=== PATIENT | female | born 1965 | race Caucasian/White ===

== ENCOUNTER 2020-01-30 21:16 | Emergency (ER) | payer MEDICARE, OTHER ==
[2020-01-30] MEDS ORDERED: ASPIRIN 81 MG PO STA (22:09)
[2020-01-30 22:42] LABS: Basophils # (A) 0.1 k/uL (0-0.2); Basophils % (A) 1 %; Eosinophils # (A) 0.4 k/uL (0-0.7); Eosinophils % (A) 4 %; HCT 40.3 % (34.0-46.0); HGB 13.2 gm/dL (11.4-16.0); Lymphocytes # (A) 3.3 k/uL (1.0-4.8); Lymphocytes % (A) 36 %; MCH 28.2 pg (25.0-35.0); MCHC 32.8 g/dL (31.0-37.0); MCV 86.1 fL (80.0-100.0); Mean Platelet Volume 6.8; Monocytes # (A) 0.5 k/uL (0-1.0); Monocytes % (A) 6 %; Neutrophils # (A) 4.7 k/uL (1.3-7.7); Neutrophils % (A) 51 %; Platelet Count 360 k/uL (150-450); RBC 4.68 m/uL (3.80-5.40); RDW 13.1 % (11.5-15.5); WBC 9.1 k/uL (3.8-10.6)
[2020-01-30 22:43] VITALS: RESP 18
--- NOTE | 2020-01-30 22:47 | XR ---
EXAMINATION TYPE: XR chest 1V portable DATE OF EXAM: 01/30/2020 COMPARISON: NONE HISTORY: Cough and short of breath TECHNIQUE: Single view FINDINGS: There is no heart failure nor confluent pneumonic infiltrate. There is a questionable minim al interstitial infiltrate in the periphery of the right midlung. There are chest leads. Costophrenic angles are clear. Bony thorax is intact. IMPRESSION: Possible mild right-sided interstitial peripheral infiltrate.
--- NOTE | 2020-01-30 23:03 | ED ---
General Adult HPI - General Source: patient, RN notes reviewed, old records reviewed Mode of arrival: wheelchair <Marquis Durham - Last Filed: 01/30/20 23:10> <Frances Dooley - Last Filed: 01/31/20 00:35> - General Chief complaint: Shortness of Breath Stated complaint: SOB Time Seen by Provider: 01/30/20 21:30 - History of Present Illness Initial comments: 55-year-old female patient ED. Patient was covid positive 01/05. Patient was that she is still feeling quite ill. Reports that she is extremely weak fatigue short of breath has been having chest pain the first offer last 3 days. Reports that is dull and achy. Patient does report that she has prior cardiac history however denies any stents or angioplasty. Reports angina and possible valvular disorder. Denies any other complaints. Systemic: Pt denies fatigue, fever/chills, rash. Pt denies weakness, night sweats, weight loss. Neuro: Pt denies headache, visual disturbances, syncope or pre-syncope. HEENT: Pt denies ocular discharge or irritation, otalgia, rhinorrhea, pharyngitis or notable lymphadenopathy. Cardiopulmonary: Pt denies heart palpitations, dyspnea on exertion. Abdominal/GI: Pt denies abdominal pain, n/v/d. : Pt denies dysuria, burning w/ urination, frequency/urgency. Denies new onset urinary or bowel incontinence. MSK: Pt denies myalgia, loss of strength or function in extremities. Neuro: Pt denies new onset weakness, paresthesias. (Marquis Durham) - Related Data Allergies Allergy/AdvReac Type Severity Reaction Status Date / Time rofecoxib [From Vioxx] Allergy Itching Verified 01/30/20 21:28 Review of Systems ROS Other: All systems not noted in ROS Statement are negative. <Marquis Durham - Last Filed: 01/30/20 23:10> ROS Other: All systems not noted in ROS Statement are negative. <Frances Dooley - Last Filed: 01/31/20 00:35> ROS Statement: Those systems with pertinent positive or pertinent negative responses have been documented in the HPI. General Exam <Marquis Durham - Last Filed: 01/30/20 23:10> - General Exam Comments Initial Comments: Constitutional: NAD, AOX3, Pt has pleasant affect. HEENT: NC/AT, trachea midline, neck supple, no lymphadenopathy. Posterior pharynx non erythematous, without exudates. External ears appear normal, without discharge. Mucous membranes moist. Eyes PERRLA, EOM intact. There is no scleral icterus. No pallor noted. Cardiopulmonary: RRR, no murmurs, rubs or gallops, no JVD noted. Mild wheezing noted anterior lung yoon. No peripheral edema. Abdominal exam: Abdomen soft and non-distended. Abdomen non-tender to palpation in all 4 quadrants. Bowel sounds active in LLQ. No hepatosplenomegaly. No ecchymosis Neuro: CN II-XII grossly intact. No nuchal rigidity. No raccon eyes, no robb sign, no hemotympanum. No cervical spinal tenderness. MSK: No posterior calf tenderness bilaterally, homans sign negative bilaterally. Posterior tibialis and radial pulse +2 bilaterally. Sensation intact in upper and lower extremities. Full active ROM in upper and lower extremities, 5/5 stregnth. (Marquis Durham) Course Vital Signs 01/30/20 01/30/20 21:25 22:30 Temperature 97.7 F Pulse Rate 86 79 Respiratory 20 18 Rate Blood Pressure 134/83 O2 Sat by Pulse 95 98 Oximetry Medical Decision Making - Lab Data Result diagrams: 01/30/20 22:16 - EKG Data -: EKG Interpreted by Me (and Dr. Dooley ) <Marquis Durham - Last Filed: 01/30/20 23:10> - Lab Data Result diagrams: 01/30/20 22:16 01/30/20 22:16 <Frances Dooley - Last Filed: 01/31/20 00:35> - Medical Decision Making 54 year old female patient covid positive to ED with chest pain, sob. EKG n onischemic, CXR displayed possible pneumonia. Patient will be signed out to Dr. Dooley for final disposition. (Marquis Durham) Patient care signed out to me by Drew Durham, patient presenting with pleuritic like chest pain and persistent shortness of breath after recovering from COVID. Labs are relatively unremarkable computed tomography scan shows inflammatory changes. 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 Recommended to follow up outpatient with a retort setter. Patient was given the names of multiple local retort setter for follow-up. All questions pertaining care were answered return parameters were discussed patient was discharged home in stable condition. (Frances Dooley) - Lab Data Lab Results 01/30/20 01/30/20 01/30/20 Range/Units 22:16 22:16 22:16 WBC 9.1 (3.8-10.6) k/uL RBC 4.68 (3.80-5.40) m/uL Hgb 13.2 (11.4-16.0) gm/dL Hct 40.3 (34.0-46.0) % MCV 86.1 (80.0-100.0) fL MCH 28.2 (25.0-35.0) pg MCHC 32.8 (31.0-37.0) g/dL RDW 13.1 (11.5-15.5) % Plt Count 360 (150-450) k/uL MPV 6.8 Neutrophils % 51 % Lymphocytes % 36 % Monocytes % 6 % Eosinophils % 4 % Basophils % 1 % Neutrophils # 4.7 (1.3-7.7) k/uL Lymphocytes # 3.3 (1.0-4.8) k/uL Monocytes # 0.5 (0-1.0) k/uL Eosinophils # 0.4 (0-0.7) k/uL Basophils # 0.1 (0-0.2) k/uL PT 9.4 (9.0-12.0) sec INR 0.9 (<1.2) APTT 22.0 (22.0-30.0) sec D-Dimer 0.30 (<0.60) mg/L FEU Sodium 135 L (137-145) mmol/L Potassium 4.1 (3.5-5.1) mmol/L Chloride 104 (98-107) mmol/L Carbon Dioxide 26 (22-30) mmol/L Anion Gap 5 mmol/L BUN 17 (7-17) mg/dL Creatinine 0.59 (0.52-1.04) mg/dL Est GFR (CKD-EPI)AfAm >90 (>60 ml/min/1.73 sqM) Est GFR (CKD-EPI)NonAf >90 (>60 ml/min/1.73 sqM) Glucose 136 H (74-99) mg/dL Plasma Lactic Acid Jv (0.7-2.0) mmol/L Calcium 9.7 (8.4-10.2) mg/dL Magnesium 2.0 (1.6-2.3) mg/dL Total Bilirubin 0.3 (0.2-1.3) mg/dL AST 23 (14-36) U/L ALT 19 (4-34) U/L Alkaline Phosphatase 95 (38-126) U/L Lactate Dehydrogenase 427 (313-618) U/L Troponin I (0.000-0.034) ng/mL C-Reactive Protein <5.0 (<10.0) mg/L Total Protein 6.8 (6.3-8.2) g/dL Albumin 3.9 (3.5-5.0) g/dL 01/30/20 01/30/20 Range/Units 22:16 22:16 WBC (3.8-10.6) k/uL RBC (3.80-5.40) m/uL Hgb (11.4-16.0) gm/dL Hct (34.0-46.0) % MCV (80.0-100.0) fL MCH (25.0-35.0) pg MCHC (31.0-37.0) g/dL RDW (11.5-15.5) % Plt Count (150-450) k/uL MPV Neutrophils % % Lymphocytes % % Monocytes % % Eosinophils % % Basophils % % Neutrophils # (1.3-7.7) k/uL Lymphocytes # (1.0-4.8) k/uL Monocytes # (0-1.0) k/uL Eosinophils # (0-0.7) k/uL Basophils # (0-0.2) k/uL PT (9.0-12.0) sec INR (<1.2) APTT (22.0-30.0) sec D-Dimer (<0.60) mg/L FEU Sodium (137-145) mmol/L Potassium (3.5-5.1) mmol/L Chloride (98-107) mmol/L Carbon Dioxide (22-30) mmol/L Anion Gap mmol/L BUN (7-17) mg/dL Creatinine (0.52-1.04) mg/dL Est GFR (CKD-EPI)AfAm (>60 ml/min/1.73 sqM) Est GFR (CKD-EPI)NonAf (>60 ml/min/1.73 sqM) Glucose (74-99) mg/dL Plasma Lactic Acid Jv 1.2 (0.7-2.0) mmol/L Calcium (8.4-10.2) mg/dL Magnesium (1.6-2.3) mg/dL Total Bilirubin (0.2-1.3) mg/dL AST (14-36) U/L ALT (4-34) U/L Alkaline Phosphatase (38-126) U/L Lactate Dehydrogenase (313-618) U/L Troponin I <0.012 (0.000-0.034) ng/mL C-Reactive Protein (<10.0) mg/L Total Protein (6.3-8.2) g/dL Albumin (3.5-5.0) g/dL - EKG Data EKG Comments: ventricular rate 82, OK interval 132, QRS 72, QT/QTC 374/436. Normal sinus rhythm with sinus arrhythmia. Low voltage QRS, borderline QT cover no concern for acute ischemia. (Marquis Durham) Disposition <Marquis Durham - Last Filed: 01/30/20 23:10> Is patient prescribed a controlled substance at d/c from ED?: No <Frances Dooley - Last Filed: 01/31/20 00:35> Clinical Impression: Pleurisy Disposition: HOME SELF-CARE Condition: Stable Instructions (If sedation given, give patient instructions): Pleurisy (DC) Referrals: None,Stated [Primary Care Provider] - 1-2 days Jerome Hernandez DO [Doctor of Osteopathic Medicine] - 1-2 days Kartik Mendez MD [STAFF PHYSICIAN] - 1-2 days Finn Cagle MD [STAFF PHYSICIAN] - 1-2 days
[2020-01-30 23:04] LABS: D-Dimer 0.3 mg/L FEU (<0.60); INR 0.9 (<1.2); Prothrombin Time 9.4 sec (9.0-12.0)
[2020-01-30] MEDS ORDERED: ALBUTEROL NEBULIZED 2.5 MG/3 ML INHALATION STA (23:09)
[2020-01-30] MEDS ORDERED: SODIUM CHLORIDE 0.9% 500 ML 500 ML IV ONE (23:10)
[2020-01-30 23:20] LABS: ALT 19 U/L (4-34); AST 23 U/L (14-36); African American GFR (CKD) >90 (>60 ml/min/1.73 sqM); Albumin 3.9 g/dL (3.5-5.0); Alkaline Phosphatase 95 U/L (38-126); Anion Gap 5 mmol/L; Blood Urea Nitrogen 17 mg/dL (7-17); Calcium 9.7 mg/dL (8.4-10.2); Carbon Dioxide 26 mmol/L (22-30); Chloride 104 mmol/L (98-107); Glucose 136 mg/dL (74-99); LDH 427 U/L (313-618); Non-African American GFR(CKD) >90 (>60 ml/min/1.73 sqM); Potassium 4.1 mmol/L (3.5-5.1); Sodium 135 mmol/L (137-145); Total Bilirubin 0.3 mg/dL (0.2-1.3); Total Protein 6.8 g/dL (6.3-8.2)
[2020-01-30] MEDS ORDERED: AMOXIC-POT CLAV 875-125MG 1 EACH TAB PO STA (23:21)
[2020-01-30] MEDS ORDERED: ALBUTEROL HFA INHALER INHALATION STA (23:21)
[2020-01-30 23:36] LABS: C Reactive Protein <5.0 mg/L (<10.0)
--- NOTE | 2020-01-31 00:06 | CT ---
EXAMINATION TYPE: CT chest angio for PE DATE OF EXAM: 01/30/2020 COMPARISON: None HISTORY: chest pain CT DLP: 261 mGycm Automated exposure control for dose reduction was used. CONTRAST: Performed with IV Contrast, patient injected with 60 mL of Isovue 370. There are 3-D post processed images. There is some patchy reticular subpleural infiltrate in the periphery of both lungs and more on the r ight side. This is more confluent at the right posterior lung base. There is no pleural effusion. The re is large hiatal hernia. Heart size is normal. There is no pericardial effusion. There is no mediastinal adenopathy. Thoracic aorta is intact. There is no aneurysm or dissection. The ascending aorta measures 3.3 cm. There are no hilar masses. There is normal contrast opacification of the pulmonary arteries. There are no filling defect. Thoracic vertebra show normal alignment. There is 50% anterior wedging of L1 vertebra that is probabl y old. The ribs appear intact. IMPRESSION: No evidence of pulmonary embolism. Patchy bilateral peripheral pulmonary interstitial infiltrates consistent with inflammatory disease. This is more confluent in the posterior right lower lobe. L1 compression fractures probably old. Large hiatal hernia.
[2020-01-31 00:52] VITALS: BP 101/72
[2020-01-31 01:10] VITALS: PULSE 71; TEMP 97
[2020-01-31 09:39] LABS: Ferritin 45.4 ng/mL (10.0-291.0)
== END 2020-01-31 01:15 | disposition home or self-care (01) ==
LOC: EC 21:16
DX: R09.1 Pleurisy (principal); Z88.8 Allergy status to other drugs, medicaments and biological substances; Z86.19 Personal history of other infectious and parasitic diseases
CPT/HCPCS: 36415; 94640; 93005; 85379; 80053; 82728; 83605; 83615; 83735; 84484; 85025; 85610; 85730; 86140; 87040; 84145; 71045; 71275; 99285; 96360; Q9967